=== PATIENT | male | born 1995 | race Caucasian/White ===

== ENCOUNTER 2021-04-18 17:37 | Emergency (ER) | payer OTHER ==
[2021-04-18 17:59] VITALS: TEMP 97.4; BMI 21.7
[2021-04-18 18:30] LABS: VENOUS BASE EXCESS -1.6 mmol/L (-2-2); VENOUS O2 SATURATION 63.1 % (70-80); VENOUS PCO2 43.5 mmHg (38-52); VENOUS PH 7.359 (7.310-7.410)
[2021-04-18 18:33] LABS: BASO % 0.3 % (0-2.0); EOS % 0.3 % (0-4.5); HEMATOCRIT 41.5 % (35.4-49); HEMOGLOBIN 14.6 GM/dL (11.7-16.9); LYMPH % 11.2 % (8-40); MCH 31.1 pg (25.7-33.7); MCHC 35.2 g/dl (32.0-35.9); MEAN CELL VOLUME 88.3 fl (80-96); MEAN PLT VOLUME 10.2 fl (7.5-11.1); MONO % 7.5 % (3.8-10.2); NEUT % 80.7 % (42.8-82.8); PLATELET COUNT 122 K/MM3 (134-434); RBC 4.69 M/mm3 (4.00-5.60); RDW 12.4 % (11.9-15.9); WHITE BLOOD COUNT 11.1 K/mm3 (4.0-10.0)
[2021-04-18 18:53] LABS: ALBUMIN 4.5 g/dl (3.4-5.0); BLOOD UREA NITROGEN 21.4 mg/dL (7-18); CALCIUM 8.7 mg/dL (8.5-10.1)
[2021-04-18 18:57] LABS: CREATININE 1.1 mg/dL (0.55-1.3)
[2021-04-18 18:58] LABS: BILIRUBIN,TOTAL 0.6 mg/dL (0.2-1); TOT PROT 6.9 g/dl (6.4-8.2)
[2021-04-18 21:18] VITALS: BP 122/88; PULSE 80
== END 2021-04-18 21:15 | disposition home or self-care (01) ==
LOC: JER 17:37
DX: J70.5 Respiratory conditions due to smoke inhalation (principal); T59.811A Toxic effect of smoke, accidental (unintentional), initial encounter
CPT/HCPCS: 36415; 71045-TC-FY; 80053; 82375; 82803; 85025; 99284-25

== ENCOUNTER 2022-02-27 14:25 | Emergency (ER) | payer OTHER ==
[2022-02-27 14:34] VITALS: BP 118/72; PULSE 74; TEMP 98; BMI 22.4
[2022-02-27] MEDS ORDERED: DIPHTH,PERTUSS(ACELL),TET 0.5 ML DISP.SYRIN IM ONE ×2 (14:43→15:01)
[2022-02-27 16:25] LABS: SYPHILIS W/ RPR CONF NON-REACTIVE (NONREACTIVE)
[2022-02-27 16:54] LABS: HIV INTERPRETATION NEGATIVE (NEGATIVE)
== END 2022-02-27 15:59 ==
LOC: JER 14:25 → JERFT 14:25
PROC: 3E0234Z Introduction of Serum, Toxoid and Vaccine into Muscle, Percutaneous Approach (ICD-10-PCS; principal; 2022-02-27)
DX: Z77.21 Contact with and (suspected) exposure to potentially hazardous body fluids (principal)
CPT/HCPCS: 36415; 86704; 86780; 86803; 87340; 87389; 87517; 90715; 99283-25

== ENCOUNTER 2024-12-12 15:47 | Emergency (ER) | payer OTHER ==
[2024-12-12 16:04] VITALS: BP 125/77; PULSE 94; RESP 18; TEMP 98; BMI 23.0
[2024-12-12] MEDS ORDERED: LIDOCAINE 4% PATCH TP ONE (17:33)
[2024-12-12] MEDS ORDERED: IBUPROFEN 400 MG TABLET (FP) PO ONE (17:33)
[2024-12-12] MEDS: IBUPROFEN 400 MG TABLET (FP) PO PRN (17:38)
[2024-12-12] MEDS: LIDOCAINE 5% TOPICAL PATCH TP ONE (17:38)
[2024-12-12] MEDS ORDERED: LIDOCAINE PATCH REMOVAL MC SCH (22:00)
== END 2024-12-12 18:18 | disposition home or self-care (01) ==
LOC: JERFT 15:47
DX: S39.012A Strain of muscle, fascia and tendon of lower back, initial encounter (principal); X50.1XXA Overexertion from prolonged static or awkward postures, initial encounter; Y99.0 Civilian activity done for income or pay
CPT/HCPCS: 99283-25